=== PATIENT | female | born 1995 | race American Indian/Alaskan Native ===

== ENCOUNTER 2017-03-22 20:08 | Emergency (ER) | payer MEDICAID ==
[2017-03-22 21:44] VITALS: BP 109/68
== END 2017-03-23 04:32 | disposition left against medical advice (07) ==
LOC: ED 20:08
DX: Z53.21 Procedure and treatment not carried out due to patient leaving prior to being seen by health care provider (principal)

== ENCOUNTER 2018-01-22 13:38 | Outpatient (CLI) | payer MEDICAID ==
[2018-01-22] MEDS ORDERED: LACTATED RINGERS 500 ML IV ONE (14:05)
[2018-01-22 15:43] VITALS: BP 110/55
[2018-01-22] MEDS ORDERED: TYLENOL PO ONE (16:40)
== END 2018-01-22 16:00 | disposition home or self-care (01) ==
LOC: TRG 13:38 → LD 13:41 → TRG 16:00
PROVIDERS: ATTEND Obstetrics & Gynecology
DX: O47.02 False labor before 37 completed weeks of gestation, second trimester (principal); O99.332 Smoking (tobacco) complicating pregnancy, second trimester; Z3A.26 26 weeks gestation of pregnancy; Z91.040 Latex allergy status
CPT/HCPCS: 59025

== ENCOUNTER 2019-06-03 19:40 | Emergency (ER) | payer MEDICAID ==
[2019-06-03 19:59] VITALS: BP 120/69
== END 2019-06-03 20:05 | disposition left against medical advice (07) ==
LOC: ED 19:40
DX: R51 Headache (principal); Z53.21 Procedure and treatment not carried out due to patient leaving prior to being seen by health care provider

== ENCOUNTER 2020-03-01 23:49 | Emergency (ER) | payer MEDICAID, OTHER ==
[2020-03-02] MEDS ORDERED: methylPREDNISolone Sod Succinate 125 MG/2 ML INJ IV ONE (00:38)
--- NOTE | 2020-03-02 00:41 | Emergency Department Report ---
ED General Adult HPI - General Chief complaint: Dyspnea/Respdistress Stated complaint: RIGHT SIDE PAIN W/BREATHING PUI?: No Time Seen by Provider: 03/02/20 00:37 Source: patient Mode of arrival: Ambulatory Limitations: No Limitations - History of Present Illness Initial comments: Patient is a 24-year-old female that presents emergency room with complaints of right-sided chest pain. Patient states the chest pain started 3 hours ago. Patient states the pain is worsening. Patient states the pain is a 10 out of 10. Patient states that the pain is worse with movement, palpation and deep breaths. Patient states she is only short of breath due to the amount of pain on her right chest wall. Patient denies left-sided chest pain. Patient denies fever and chills. Patient denies cough. Patient that she has a history of as thma but not having any asthma problems. Patient states she has not used inhaler for many months. Patient denies trauma. Patient denies injury to her chest wall. Patient denies cough. Patient denies recent travel. Patient denies recent international travel. Patient denies exposure to the novel coronavirus. Patient denies sick contacts. Patient denies fever and chills. Patient denies cough. Patient denies diarrhea. Patient denies coming in contact with anybody with symptoms of the no deon coronavirus. -: Sudden Location: chest Radiation: non-radiation Severity scale (0 -10): 10 Quality: stabbing, sharp Consistency: constant Improves with: rest Worsens with: movement, other (Palpation and deep breath) Associated Symptoms: chest pain, shortness of breath. denies: confusion, cough, diaphoresis, fever/chills, headaches, loss of appetite, malaise, syncope, weakness - Related Data Home Medications Medication Instructions Recorded Confirmed Last Taken Pnv,Calcium 72/Iron/Folic Acid 1 tab PO DAILY 03/07/16 01/22/18 1 Day Ago [Pnv Plus Multivit Tab] ~01/21/18 Previous Rx's Medication Instructions Recorded Last Taken Type Acetaminophen/Codeine [Tylenol 1 tab PO Q4HR PRN #10 tablet 03/02/20 Unknown Rx /Codeine # 3 tab] methylPREDNISolone [Medrol 4MG 4 mg PO DAILY 6 Days #1 tab.ds.pk 03/02/20 Unknown Rx DOSEPAK (21 tabs)] Allergies Allergy/AdvReac Type Severity Reaction Status Date / Time latex Allergy Rash Verified 03/07/16 15:34 ED Review of Systems ROS: Stated complaint: RIGHT SIDE PAIN W/BREATHING Other details as noted in HPI Constitutional: denies: chills, fever Eyes: denies: eye pain, eye discharge, vision change ENT: denies: ear pain, throat pain Respiratory: shortness of breath. denies: cough, wheezing Cardiovascular: chest pain. denies: palpitations Endocrine: no symptoms reported Gastrointestinal: denies: abdominal pain, nausea, diarrhea Genitourinary: denies: urgency, dysuria, discharge Musculoskeletal: denies: back pain, joint swelling, arthralgia Skin: denies: rash, lesions Neurological: denies: headache, weakness, paresthesias Psychiatric: denies: anxiety, depression Hematological/Lymphatic: denies: easy bleeding, easy bruising ED Past Medical Hx - Past Medical History Previous Medical History?: Yes Hx Hypertension: No Hx Diabetes: No Hx Deep Vein Thrombosis: No Hx Renal Disease: No Hx Sickle Cell Disease: No Hx Headaches / Migraines: Yes Hx Seizures: No Hx Asthma: Yes Hx HIV: No Additional medical history: anemia, - Surgical History Past Surgical History?: Yes Hx Breast Surgery: No Additional Surgical History: c sectX 2. Tubal ligation - Family History Family history: no significant - Social History Smoking Status: Never Smoker Substance Use Type: None - Medications Home Medications: Home Medications Medication Instructions Recorded Confirmed Last Taken Type Pnv,Calcium 72/Iron/Folic Acid 1 tab PO DAILY 03/07/16 01/22/18 1 Day Ago History [Pnv Plus Multivit Tab] ~01/21/18 Acetaminophen/Codeine [Tylenol 1 tab PO Q4HR PRN #10 tablet 03/02/20 Unknown Rx /Codeine # 3 tab] methylPREDNISolone [Medrol 4MG 4 mg PO DAILY 6 Days #1 tab.ds.pk 03/02/20 Unknown Rx DOSEPAK (21 tabs)] ED Physical Exam - General Limitations: No Limitations General appearance: alert, in no apparent distress - Head Head exam: Present: atraumatic, normocephalic - Eye Eye exam: Present: normal appearance - ENT ENT exam: Present: mucous membranes moist - Neck Neck exam: Present: normal inspection - Respiratory Respiratory exam: Present: normal lung sounds bilaterally, chest wall tenderness (Right-sided chest tenderness to palpation. Palpation of the right chest wall reproduces symptoms.). Absent: respiratory distress, wheezes, rales, rhonchi - Cardiovascular Cardiovascular Exam: Present: regular rate, normal rhythm. Absent: systolic murmur, diastolic murmur, rubs, gallop - GI/Abdominal GI/Abdominal exam: Present: soft, normal bowel sounds - Extremities Exam Extremities exam: Present: normal inspection - Back Exam Back exam: Present: normal inspection - Neurological Exam Neurological exam: Present: alert, oriented X3 - Psychiatric Psychiatric exam: Present: normal affect, normal mood - Skin Skin exam: Present: warm, dry, intact, normal color. Absent: rash ED Course Vital Signs 03/02/20 03/02/20 03/02/20 00:23 00:24 00:48 Temperature 98.8 F Pulse Rate 113 H 107 H Respiratory 20 22 Rate Blood Pressure 129/76 Blood Pressure [Left] O2 Sat by Pulse 96 99 Oximetry 03/02/20 03/02/20 03/02/20 00:50 01:05 01:15 Temperature 98.2 F Pulse Rate 96 H 86 Respiratory 18 13 Rate Blood Pressure 124/89 112/66 Blood Pressure 124/89 [Left] O2 Sat by Pulse 98 98 98 Oximetry 03/02/20 03/02/20 03/02/20 01:31 02:00 02:15 Temperature Pulse Rate 88 84 86 Respiratory 16 14 14 Rate Blood Pressure 112/66 113/65 113/65 Blood Pressure [Left] O2 Sat by Pulse 98 97 98 Oximetry 03/02/20 03/02/20 03/02/20 02:32 02:45 03:00 Temperature Pulse Rate 104 H 94 H 90 Respiratory 18 17 15 Rate Blood Pressure 113/65 113/65 116/54 Blood Pressure [Left] O2 Sat by Pulse 100 97 99 Oximetry 03/02/20 03/02/20 03/02/20 03:15 03:29 03:40 Temperature Pulse Rate 96 H 90 Respiratory 16 18 18 Rate Blood Pressure 116/54 Blood Pressure 116/54 [Left] O2 Sat by Pulse 98 99 Oximetry - Reevaluation(s) Reevaluation #1: Patient states her chest pain is better after Dilaudid. 03/02/20 01:43 Reevaluation #2: Patient states her chest pain has returned and is worsening. Patient will be g iven another dose of Dilaudid. CTA pending 03/02/20 02:43 Reevaluation #3: Patient states her chest pain is better. I discussed all results and clinical findings with patient. I discussed plan of care with patient. Patient agrees with plan of care. Patient is stable for discharge. Patient will be discharged home. Patient given discharge instructions. Patient voiced understanding of discharge instructions. 03/02/20 03:26 ED Medical Decision Making - Lab Data Result diagrams: 03/02/20 00:51 03/02/20 00:51 - Radiology Data Radiology results: report reviewed, image reviewed interpreted by me: Chest x-ray: No pneumonia, no pneumothorax, no foreign body, no osseous findings, no acute findings CTA CHEST WITH IV CONTRAST INDICATION: Chest pain, shortness of breath. TECHNIQUE: Axial CT images were obtained through the chest after injection of 100 mL IV Omnipaque 350 IV contrast. 3 plane MIP reconstructions were produced. All CT scans at this location are performed us ing CT dose reduction for ALARA by means of automated exposure control. COMPARISON: None available. FINDINGS: Pulmonary Arteries: No pulmonary emboli. Lungs: No significant abnormality. Trachea and Bronchi: No significant abnormality. Heart and Pericardium: No significant abnormality. Vasculature: No significant abnormality. Lymphatics: No lymphadenopathy. Additional Findings: None. Upper Abdomen: No acute findings. Skeletal Structures: No significant osseous abnormality. IMPRESSION: 1. No CT evidence for pulmonary embolism. 2. No acute findings. - Medical Decision Making Patient is a 24-year-old female that presents emergency room with complaints of right-sided chest pain and shortness of breath. Patient's on initial examination was found to have chest wall tenderness on the right side that reproduced her symptoms. Patient had labs done which were essentially unremarkable except for an elevated d-dimer. Patient had a CTA due to the elevated d-dimer and her presenting symptoms. Patient's CTA was negative. Patient given Dilaudid for chest pain and her chest pain improved. Patient is stable for discharge and will be discharged home to follow-up with her primary care. - Differential Diagnosis PE, chest pain, chest wall pain, anxiety, S OB, pleurisy Critical care attestation.: If time is entered above; I have spent that time in minutes in the direct care of this critically ill patient, excluding procedure time. ED Disposition Clinical Impression: Right-sided chest wall pain, SOB (shortness of breath), Elevated d-dimer, Pleurisy Chest pain Qualifiers: Chest pain type: unspecified Qualified Code(s): R07.9 - Chest pain, unspecified Disposition: TO HOME OR SELFCARE Is pt being admited?: No Does the pt Need Aspirin: No Condition: Stable Instructions: Chest Pain (ED), Costochondritis (ED) Additional Instructions: Patient to follow-up with primary care in 2 to 3 days. Patient to rest. Patient to increase water. Patient to avoid strenuous exercise or heavy lifting until cleared by primary care. Patient to take Tylenol or ibuprofen as needed for pain. Patient to take meds as directed. Patient to return to the ER if condition worsens, changes or new symptoms arise. Prescriptions: methylPREDNISolone [Medrol 4MG DOSEPAK (21 tabs)] 4 mg PO DAILY 6 Days #1 tab.ds.pk Acetaminophen/Codeine [Tylenol /Codeine # 3 tab] 1 tab PO Q4HR PRN #10 tablet PRN Reason: Pain Referrals: PRIMARY CARE, [Primary Care Provider] - 2-3 Days Time of Disposition: 03:29
[2020-03-02] MEDS ORDERED: ONDANSETRON 4 MG/2 ML INJ ONE (00:42)
[2020-03-02] MEDS ORDERED: HYDROmorphone 1 MG/1 ML INJ ONE (00:42)
[2020-03-02] MEDS ORDERED: HYDROmorphone 1 MG/1 ML INJ IV ONE ×2 (00:47→02:42)
[2020-03-02] MEDS ORDERED: ONDANSETRON 4 MG/2 ML INJ IV ONE (00:47)
[2020-03-02 01:21] LABS: Hemoglobin 11.6 gm/dl (10.1-14.3); Mean Corpuscular HGB Conc 32 % (30-34); Mean Corpuscular Volume 75 fl (79-97); Platelet Count 293 K/mm3 (140-440); Red Blood Count 4.78 M/mm3 (3.65-5.03)
[2020-03-02 01:39] LABS: Red Cell Distribution Width 20.3 % (13.2-15.2)
--- NOTE | 2020-03-02 01:44 | XRay Report ---
CHEST 2 VIEWS INDICATION / CLINICAL INFORMATION: Chest pain, difficulty breathing. COMPARISON: None available. FINDINGS: SUPPORT DEVICES: None. HEART / MEDIASTINUM: No significant abnormality. LUNGS / PLEURA: No significant pulmonary or pleural abnormality. No pneumothorax. ADDITIONAL FINDINGS: No significant additional findings. IMPRESSION: 1. No acute findings. Signer Name: Tim Gunn MD Signed: 03/02/2020 1:40 AM Workstation Name: [id number]
[2020-03-02 01:48] LABS: Alanine Aminotransferase 23 units/L (7-56); Albumin 4.3 g/dL (3.9-5); Blood Urea Nitrogen 13 mg/dL (7-17); Calcium 9.5 mg/dL (8.4-10.2); Hemolysis Index 0
[2020-03-02 01:58] LABS: BUN/Creatinine Ratio 26
--- NOTE | 2020-03-02 02:50 | Cat Scan Report ---
CTA CHEST WITH IV CONTRAST INDICATION: Chest pain, shortness of breath. TECHNIQUE: Axial CT images were obtained through the chest after injection of 100 mL IV Omnipaque 350 IV contras t. 3 plane MIP reconstructions were produced. All CT scans at this location are performed using CT do se reduction for ALARA by means of automated exposure control. COMPARISON: None available. FINDINGS: Pulmonary Arteries: No pulmonary emboli. Lungs: No significant abnormality. Trachea and Bronchi: No significant abnormality. Heart and Pericardium: No significant abnormality. Vasculature: No significant abnormality. Lymphatics: No lymphadenopathy. Additional Findings: None. Upper Abdomen: No acute findings. Skeletal Structures: No significant osseous abnormality. IMPRESSION: 1. No CT evidence for pulmonary embolism. 2. No acute findings. Signer Name: Tim Gunn MD Signed: 03/02/2020 2:45 AM Workstation Name: [id number]
[2020-03-02 03:31] VITALS: BP 116/54
== END 2020-03-02 03:40 | disposition home or self-care (01) ==
LOC: ED 23:49
DX: R09.1 Pleurisy (principal); R06.02 Shortness of breath; R07.89 Other chest pain; R79.1 Abnormal coagulation profile; G43.909 Migraine, unspecified, not intractable, without status migrainosus; Z79.899 Other long term (current) drug therapy; Z98.51 Tubal ligation status; Z98.890 Other specified postprocedural states
CPT/HCPCS: 36415; 71046; 71275; 80053; 85027; 85379; 96374; 96375; 96376; 99284; J1170; J2405; J2930; Q9967

== ENCOUNTER 2020-03-06 01:26 | Emergency (ER) | payer OTHER ==
[2020-03-06 02:13] VITALS: BP 134/75
== END 2020-03-06 04:40 | disposition left against medical advice (07) ==
LOC: ED 01:26
DX: M54.2 Cervicalgia (principal); M54.5 Low back pain; M25.521 Pain in right elbow; M25.522 Pain in left elbow; Z53.21 Procedure and treatment not carried out due to patient leaving prior to being seen by health care provider; V49.49XA Driver injured in collision with other motor vehicles in traffic accident, initial encounter; Y93.89 Activity, other specified; Y92.410 Unspecified street and highway as the place of occurrence of the external cause; Y99.8 Other external cause status

== ENCOUNTER 2020-06-01 19:52 | Emergency (ER) | payer OTHER ==
[2020-06-01] MEDS ORDERED: ONDANSETRON 4 MG/2 ML INJ IM ONE (20:04)
--- NOTE | 2020-06-01 20:11 | Event Note ---
ED Screening Note Date of service: 06/01/20 Time: 20:11 ED Screening Note: Patient complains of nausea and vomiting x2 days Also states diarrhea + Abdominal pain History of tubal ligation This initial assessment/diagnostic orders/clinical plan/treatment(s) is/are subject to change based on patients health status, clinical progression and re- assessment by fellow clinical providers in the ED. Further treatment and workup at subsequent clinical providers discretion. Patient/guardian urged not to elope from the ED as their condition may be serious if not clinically assessed and managed. Initial orders include: Labs IM Zofran
[2020-06-01 21:19] LABS: Basophils % (Auto) 0.2 % (0.0-1.8); Eosinophils # (Auto) 0.1 K/mm3 (0.0-0.4); Eosinophils % (Auto) 0.6 % (0.0-4.3); Hematocrit 44.6 % (30.3-42.9); Hemoglobin 14.7 gm/dl (10.1-14.3); Lymphocytes # (Auto) 0.7 K/mm3 (1.2-5.4); Lymphocytes % (Auto) 6.7 % (13.4-35.0); Mean Corpuscular HGB Conc 33 % (30-34); Mean Corpuscular Volume 79 fl (79-97); Monocytes # (Auto) 0.5 K/mm3 (0.0-0.8); Monocytes % (Auto) 5.4 % (0.0-7.3); Platelet Count 350 K/mm3 (140-440); Red Blood Count 5.63 M/mm3 (3.65-5.03); Red Cell Distribution Width 17.8 % (13.2-15.2)
[2020-06-01 21:31] LABS: Alanine Aminotransferase 21 units/L (7-56); Blood Urea Nitrogen 17 mg/dL (7-17); Calcium 10.1 mg/dL (8.4-10.2); Hemolysis Index 9
[2020-06-01 21:34] LABS: BUN/Creatinine Ratio 28
== END 2020-06-02 06:23 | disposition left against medical advice (07) ==
LOC: ED 19:52
DX: R19.7 Diarrhea, unspecified (principal); R11.2 Nausea with vomiting, unspecified; Z53.21 Procedure and treatment not carried out due to patient leaving prior to being seen by health care provider
CPT/HCPCS: 36415; 80053; 83690; 85025; J2405